=== PATIENT | female | born 1965 | race Two or more races ===

== ENCOUNTER 2022-03-21 09:43 | Outpatient (CLI) | payer OTHER | END 2022-03-21 11:00 | disposition home or self-care (01) | LOC: SONOGRAMA 09:43 | PROVIDERS: ATTEND Pathology Anatomic Pathology & Clinical Pathology | DX: E04.2 Nontoxic multinodular goiter (principal); D34 Benign neoplasm of thyroid gland; E04.1 Nontoxic single thyroid nodule ==